=== PATIENT | male | born 1935 ===

== ENCOUNTER 2021-10-11 11:51 | Outpatient (CLI) | payer OTHER | END 2021-10-11 11:52 | disposition home or self-care (01) | LOC: LAB 11:51 | PROVIDERS: ATTEND Radiology Diagnostic Radiology | DX: R31.1 Benign essential microscopic hematuria (principal) ==

== ENCOUNTER → 2021-10-12 | Outpatient (CLI) | payer OTHER | END | disposition home or self-care (01) | LOC: RAD | DX: N40.0 Benign prostatic hyperplasia without lower urinary tract symptoms (principal); C61 Malignant neoplasm of prostate; R31.1 Benign essential microscopic hematuria; M62.00 Separation of muscle (nontraumatic), unspecified site | CPT/HCPCS: 72040; 74178; Q9965 ==

== ENCOUNTER 2024-12-08 09:33 | Inpatient (IN) | payer OTHER ==
[~2024-12-08] VITALS: Ht 152.4 cm; Wt 62.1 kg
[2024-12-08] MEDS ORDERED: 0.9 % SODIUM CHLORIDE 1,000 ML IV ONE (09:45)
[2024-12-08 10:08] LABS: BASO % 0.5 % (0.1-1.2); EOS # 0.03 (0.04-0.54); EOS % 0.8 % (0.7-7.0); LYMPH # 0.91 (1.18-3.74); LYMPH % 23.2 % (19.3-53.1); MEAN PLATELET VOLUME 10.20 fl (9.4-12.4); MONO # 0.27 (0.24-0.82); MONO % 6.9 % (4.7-12.5); NEUT # 2.66 (1.56-6.13); NEUT % 67.8 % (34.0-71.1); RED CELL DISTRIBUTION WIDTH 13.1 % (11.6-14.4)
--- NOTE | 2024-12-08 10:08 | NUR ---
SE REALIZA LAB Y SE ADMINISTRA TX FABIO ORDEN MEDICA BAJO MEDIDAS ASEPTICAS. SE ORIENTA FAMILIAR DE PTE QUIEN REFIERE ENTENDER Y ACEPTAR. SE REALIZA EKG Y SE PRESENTA A DR. FRANCO QUIEN ORDENA QUE SE UBIQUE PTE EN UNIDAD DE CHEST PAIN.
[2024-12-08] MEDS ORDERED: LISINOPRIL40 MG (10:30)
[2024-12-08] MEDS ORDERED: CARDURA XL4 MG (10:30)
[2024-12-08 10:33] LABS: INR 1.13
[2024-12-08 11:15] LABS: ALT/SGPT 16.0 U/L (12-78); AST/SGOT 16.0 U/L (15-37); BILIRUBIN TOTAL 0.7 mg/dL (0.3-1.2); BUN CREA RATIO 24.0 (7.0-25.0); CREATININE SERUM 0.89 mg/dL (0.70-1.30); GFR 80.48; GLOBULINA 2.8 G/DL (2.4-3.5); GLUCOSE FASTING 100.0 mg/dL (65-100); OSMOLALITY SERUM 295.0 MOSM/KG (275-295); PHOSPHOKINASE CREATININE 77.0 U/L (39-308); TSH 3.32 uIU/mL (0.358-3.74)
[2024-12-08] MEDS ORDERED: ATORVASTATIN CALCIUM 40 MG TABLET PO ONE (14:30)
[2024-12-08] MEDS ORDERED: CLOPIDOGREL BISULFATE 75 MG TABLET PO ONE ×2 (14:30→15:04)
[2024-12-08] MEDS ORDERED: ASPIRIN 325 MG TABLET PO ONE (14:30)
[2024-12-08] MEDS ORDERED: ASPIRIN 325 MG TABLET.EC PO ONE (15:48)
[2024-12-08] MEDS ORDERED: ASPIRIN 325 MG TABLET.EC PO STA (16:06)
[2024-12-08 16:17] LABS: URINE APPEARANCE Clear; URINE BILIRRUBIN Negative (NEGATIVE); URINE BLOOD Moderate; URINE COLOR Yellow; URINE KETONE Negative (NEGATIVE); URINE LEUKOCYTE Negative; URINE NITRATE Negative; URINE PROTEIN Trace (NEGATIVE); URINE UROBILINOGEN 1.0 E.U./dl
[2024-12-08 16:21] LABS: URINE RBC 142.8 uL (0.0-20.8); URINE WBC 4.3 uL (0.0-23.2)
[2024-12-08 16:23] LABS: URINE BACTERIA 3.6 uL (0.0-1933); URINE CAST 0.29 uL (0.0-1.40); URINE EPITHELIAL CELLS 1.0 uL (0.0-38.8); URINE GLUCOSE 100 MG/DL (NEGATIVE)
[2024-12-08] MEDS ORDERED: CLOPIDOGREL BISULFATE 75 MG TABLET PO SCH (16:26)
[2024-12-08] MEDS ORDERED: ASPIRIN 81 MG TABLET.EC PO SCH (16:26)
[2024-12-08] MEDS ORDERED: ENOXAPARIN SODIUM 40 MG/0.4 ML SYRINGE SUBCUTANEO SCH (16:27)
[2024-12-08] MEDS ORDERED: ATORVASTATIN CALCIUM 40 MG TABLET PO SCH (16:27)
[2024-12-08] MEDS ORDERED: 0.9 % SODIUM CHLORIDE 1,000 ML IV SCH (16:30)
[2024-12-08] MEDS ORDERED: ACETAMINOPHEN 325 MG TABLET PO PRN (16:30)
[2024-12-08] MEDS ORDERED: LISINOPRIL 10 MG TABLET PO SCH (16:31)
[2024-12-08] MEDS ORDERED: AMLODIPINE BESYLATE 5 MG TABLET PO SCH (16:31)
[2024-12-08] MEDS ORDERED: FAMOTIDINE/PF 20 MG in 0.9 % SODIUM CHLORIDE 8 ML IV PUSH SCH (16:35)
[2024-12-08] MEDS ORDERED: ENOXAPARIN SODIUM 40 MG/0.4 ML SYRINGE SUBCUTANEO ONE (17:30)
[2024-12-08] MEDS ORDERED: FAMOTIDINE/PF 20 MG/2 ML VIAL ONE (17:31)
[2024-12-08 18:13] VITALS: BP 190/80; O2SAT 97
[2024-12-08 18:14] LABS: T4 FREE 1.24 NG/ML (0.76-1.46); TSH 2.41 uIU/mL (0.358-3.74)
[2024-12-08 18:15] LABS: CKMB 5.1 NG/ML (0.5-3.6)
[2024-12-08 19:29] VITALS: BP 186/82; O2SAT 97
[2024-12-08] MEDS ORDERED: LABETALOL HCL 100 MG/20 ML ML IV PUSH PRN (19:30)
[2024-12-08] MEDS ORDERED: MORPHINE SULFATE 2 MG/ML SYRINGE IV PRN (19:30)
[2024-12-08 22:45] VITALS: BP 131/74; O2SAT 96
[2024-12-09] MEDS ORDERED: DEXAMETHASONE SODIUM PHOSPHATE 4 MG/ML VIAL IV SCH
[2024-12-09 02:04] VITALS: BP 141/76; O2SAT 97
[2024-12-09 06:33] LABS: BASO % 0.2 % (0.1-1.2); EOS # 0.00 (0.04-0.54); EOS % 0.0 % (0.7-7.0); LYMPH # 0.60 (1.18-3.74); LYMPH % 9.4 % (19.3-53.1); MEAN PLATELET VOLUME 10.60 fl (9.4-12.4); MONO # 0.59 (0.24-0.82); MONO % 9.3 % (4.7-12.5); NEUT # 5.15 (1.56-6.13); NEUT % 80.9 % (34.0-71.1); RED CELL DISTRIBUTION WIDTH 13.0 % (11.6-14.4)
[2024-12-09 16:23] VITALS: BP 118/70; O2SAT 95
[2024-12-09 16:54] VITALS: O2SAT 95
[2024-12-09] MEDS ORDERED: AMINO ACIDS/PROTEIN HYDROLYS 30 ML BLIST.PACK PO SCH (17:00)
[2024-12-09] MEDS ORDERED: DEXAMETHASONE SODIUM PHOSP/PF 10 MG/ML VIAL IV STA (17:41)
[2024-12-09 20:26] VITALS: O2SAT 90
[2024-12-10] VITALS (10 sets, daily range): BP systolic 139–167; BP diastolic 65–89; O2SAT 88–96
[2024-12-10] MEDS ORDERED: DEXAMETHASONE SODIUM PHOSPHATE 4 MG/ML VIAL IV SCH
[2024-12-10] MEDS ORDERED: PANTOPRAZOLE SODIUM 40 MG/VIAL VIAL IV PUSH SCH (10:06)
[2024-12-10] MEDS ORDERED: RINGERS SOLUTION,LACTATED 1,000 ML IV SCH (10:15)
[2024-12-10] MEDS ORDERED: MORPHINE SULFATE 2 MG/ML SYRINGE IV SCH (21:33)
[2024-12-10] MEDS ORDERED: METHYLPREDNISOLONE SOD SUCC 500 MG VIAL IV STA (21:38)
[2024-12-10] MEDS ORDERED: MANNITOL 0.2 GM/ML (500ML) IV.SOLN IV SCH (21:59)
[2024-12-10] MEDS ORDERED: IPRATROPIUM BROMIDE 0.5 MG/2.5 ML AMPUL.NEB IH SCH (22:03)
[2024-12-10] MEDS ORDERED: DEXTROSE 50 % IN WATER 0.5 G/ML DISP.SYRIN IV PRN (22:15)
[2024-12-10] MEDS ORDERED: INSULIN LISPRO 1,000 UNIT/10 ML UNITS SUBCUTANEO PRN (22:15)
[2024-12-10] MEDS ORDERED: hydrALAZINE HCL 20 MG VIAL IV PRN (22:15)
[2024-12-10] MEDS ORDERED: METHYLPREDNISOLONE SOD SUCC 125 MG VIAL ONE (22:23)
[2024-12-11] VITALS (13 sets, daily range): BP systolic 114–156; BP diastolic 42–75; O2SAT 92–100
[2024-12-11] MEDS ORDERED: ORPHENADRINE CITRATE 30 MG/ML AMPUL ONE (00:55)
[2024-12-11] MEDS ORDERED: CEFTRIAXONE SODIUM 1,000 MG VIAL IV SCH (09:00)
[2024-12-11] MEDS ORDERED: ATORVASTATIN CALCIUM 40 MG TABLET PO SCH (09:00)
[2024-12-11] MEDS ORDERED: RINGERS SOLUTION,LACTATED 1,000 ML IV SCH (10:15)
[2024-12-11] MEDS ORDERED: MANNITOL 0.2 GM/ML (250ML) PIGGYBAG IV SCH (12:00)
[2024-12-11] MEDS ORDERED: ENOXAPARIN SODIUM 60 MG/0.6 ML SYRINGE SUBCUTANEO ONE (17:00)
[2024-12-11] MEDS ORDERED: SODIUM CL 0.9% 100 ML IV.SOLN IV ONE (17:18)
[2024-12-11] MEDS ORDERED: PIPERACILLIN/TAZOBACTAM SODIUM 3.375 GM in 0.9 % SODIUM CHLORIDE 100 ML IV SCH (18:00)
[2024-12-11] MEDS ORDERED: MORPHINE SULFATE 2 MG/ML CARTRIDGE IV PRN (18:59)
[2024-12-11] MEDS ORDERED: POLYETHYLENE GLYCOL 3350 17 GM BLIST.PACK PO SCH (21:00)
[2024-12-11] MEDS ORDERED: KETOROLAC TROMETHAMINE 30 MG VIAL IV PRN (21:00)
[2024-12-11] MEDS ORDERED: NOREPINEPHRINE BITARTRATE 1 MG/ML AMPUL IV ONE (22:31)
[2024-12-11] MEDS ORDERED: NOREPINEPHRINE BITARTRATE 4 MG in DEXTROSE 5 % IN WATER 250 ML IV SCH (22:45)
[2024-12-11] MEDS ORDERED: 0.9 % SODIUM CHLORIDE 1,000 ML IV SCH (23:00)
[2024-12-11] MEDS ORDERED: 0.9 % SODIUM CHLORIDE 500 ML IV ONE (23:00)
[2024-12-12] VITALS (23 sets, daily range): BP systolic 95–141; BP diastolic 21–65; O2SAT 94–100
[2024-12-12] MEDS ORDERED: NOREPINEPHRINE BITARTRATE 1 MG/ML AMPUL IV ONE (06:06)
[2024-12-12 08:32] LABS: BASO % 0.1 % (0.1-1.2); EOS # 0.00 (0.04-0.54); EOS % 0.0 % (0.7-7.0); LYMPH # 0.25 (1.18-3.74); LYMPH % 2.0 % (19.3-53.1); MEAN PLATELET VOLUME 11.70 fl (9.4-12.4); MONO # 0.58 (0.24-0.82); MONO % 4.7 % (4.7-12.5); NEUT # 11.47 (1.56-6.13); NEUT % 92.6 % (34.0-71.1); RED CELL DISTRIBUTION WIDTH 14.2 % (11.6-14.4)
[2024-12-12] MEDS ORDERED: POLYETHYLENE GLYCOL 3350 17 GM BLIST.PACK PO SCH (09:00)
[2024-12-12 09:06] LABS: ALT/SGPT 40.0 U/L (12-78); AST/SGOT 40.0 U/L (15-37); BILIRUBIN TOTAL 1.69 mg/dL (0.3-1.2); BUN CREA RATIO 32.0 (7.0-25.0); CREATININE SERUM 2.19 mg/dL (0.70-1.30); GFR 28.47; GLOBULINA 4.2 G/DL (2.4-3.5)
[2024-12-12 09:12] LABS: GLUCOSE FASTING 213.0 mg/dL (65-100); OSMOLALITY SERUM 312.0 MOSM/KG (275-295)
[2024-12-12] MEDS ORDERED: OXYMETAZOLINE HCL 15 ML BOTTLE NASAL ONE (11:09)
[2024-12-12] MEDS ORDERED: 0.9 % SODIUM CHLORIDE 1,000 ML IV ONE (13:30)
[2024-12-12] MEDS ORDERED: 0.9 % SODIUM CHLORIDE 1,000 ML IV NR (14:30)
[2024-12-12] MEDS ORDERED: NOREPINEPHRINE BITARTRATE 16 MG in DEXTROSE 5 % IN WATER 500 ML IV SCH (16:30)
[2024-12-12] MEDS ORDERED: CHLORHEXIDINE GLUCONATE 15ML BRUSH KIT MM SCH (17:00)
[2024-12-12] MEDS ORDERED: ENOXAPARIN SODIUM 60 MG/0.6 ML SYRINGE SUBCUTANEO ONE (17:00)
[2024-12-12] MEDS ORDERED: POLYVINYL ALCOHOL 15 ML DROPS OP SCH (17:00)
[2024-12-12] MEDS ORDERED: MEROPENEM 500 MG/VIAL VIAL IV SCH (17:00)
[2024-12-12] MEDS ORDERED: AMIODARONE HCL 50 MG/ML AMPUL IV ONE (17:31)
[2024-12-12] MEDS ORDERED: AMIODARONE HCL 50 MG/ML AMPUL IV STA (17:38)
[2024-12-12] MEDS ORDERED: AMIODARONE HCL 518 ML IV SCH (17:45)
[2024-12-12 17:57] LABS: URINE APPEARANCE Turbid; URINE BILIRRUBIN Negative (NEGATIVE); URINE BLOOD Small; URINE COLOR Red; URINE GLUCOSE Negative (NEGATIVE); URINE KETONE Negative (NEGATIVE); URINE LEUKOCYTE Moderate; URINE NITRATE Positive; URINE PROTEIN 30 (NEGATIVE); URINE UROBILINOGEN 0.2 E.U./dl
[2024-12-12 18:00] LABS: URINE BACTERIA 65.9 uL (0.0-1933); URINE EPITHELIAL CELLS 53.9 uL (0.0-38.8); URINE WBC 107.0 uL (0.0-23.2)
[2024-12-12 18:46] LABS: URINE CAST 0.00 uL (0.0-1.40); URINE RBC > 10558.9 uL (0.0-20.8)
[2024-12-12 18:47] LABS: URINE CRYSTALS MANY /HPF
[2024-12-12] MEDS ORDERED: LINEZOLID IN DEXTROSE 5% 300 ML IV SCH (21:00)
[2024-12-12] MEDS ORDERED: NOREPINEPHRINE BITARTRATE 8 MG in DEXTROSE 5 % IN WATER 250 ML IV SCH (22:45)
[2024-12-13] VITALS (24 sets, daily range): BP systolic 101–188; BP diastolic 27–85; O2SAT 96–100
[2024-12-13 07:48] LABS: BASO % 0.2 % (0.1-1.2); EOS # 0.00 (0.04-0.54); EOS % 0.0 % (0.7-7.0); LYMPH # 0.11 (1.18-3.74); LYMPH % 0.6 % (19.3-53.1); MEAN PLATELET VOLUME 11.60 fl (9.4-12.4); MONO # 1.23 (0.24-0.82); MONO % 6.2 % (4.7-12.5); NEUT # 18.36 (1.56-6.13); NEUT % 92.3 % (34.0-71.1); RED CELL DISTRIBUTION WIDTH 13.9 % (11.6-14.4)
[2024-12-13 08:30] LABS: ALT/SGPT 42.0 U/L (12-78); AST/SGOT 88.0 U/L (15-37); BILIRUBIN TOTAL 2.11 mg/dL (0.3-1.2); BUN CREA RATIO 23.0 (7.0-25.0); CREATININE SERUM 3.49 mg/dL (0.70-1.30); GFR 16.63; GLOBULINA 3.5 G/DL (2.4-3.5); GLUCOSE FASTING 167.0 mg/dL (65-100); OSMOLALITY SERUM 311.0 MOSM/KG (275-295)
[2024-12-13 08:34] LABS: PHOSPHOKINASE CREATININE 1503.0 U/L (39-308)
[2024-12-13] MEDS ORDERED: PANTOPRAZOLE SODIUM 40 MG/VIAL VIAL IV PUSH SCH (09:00)
[2024-12-13] MEDS ORDERED: AMINO ACIDS/PROTEIN HYDROLYS 30 ML BLIST.PACK PO SCH (09:00)
[2024-12-13] MEDS ORDERED: PROPOFOL 100 ML IV SCH (10:30)
[2024-12-13] MEDS ORDERED: ENOXAPARIN SODIUM 60 MG/0.6 ML SYRINGE SUBCUTANEO ONE (17:00)
[2024-12-13] MEDS ORDERED: METHYLPREDNISOLONE SOD SUCC 125 MG VIAL IV SCH (18:00)
[2024-12-13] MEDS ORDERED: POTASSIUM CHLORIDE IN WATER 100 ML IV ONE (21:15)
[2024-12-13] MEDS ORDERED: 0.9 % SODIUM CHLORIDE 1,000 ML IV STA ×2 (22:23→23:02)
[2024-12-13] MEDS ORDERED: WATER FOR INJECTION,STERILE 20 ML VIAL IJ ONE (23:31)
[2024-12-14] VITALS (18 sets, daily range): BP systolic 126–155; BP diastolic 29–46; O2SAT 94–100
[2024-12-14] MEDS ORDERED: METHYLPREDNISOLONE SOD SUCC 125 MG VIAL IV SCH ×2 (01:00→21:00)
[2024-12-14 08:50] LABS: CREATININE SERUM 3.83 mg/dL (0.70-1.30); GFR 14.94; GLUCOSE FASTING 145.0 mg/dL (65-100)
[2024-12-14 08:54] LABS: BUN CREA RATIO 21.0 (7.0-25.0); OSMOLALITY SERUM 307.0 MOSM/KG (275-295)
[2024-12-14] MEDS ORDERED: MEROPENEM 500 MG/VIAL VIAL IV SCH (09:00)
[2024-12-14] MEDS ORDERED: CALCIUM GLUCONATE 100 MG/ML VIAL IV STA (09:40)
[2024-12-14] MEDS ORDERED: METHYLPREDNISOLONE SOD SUCC 125 MG VIAL IV NR (14:00)
[2024-12-14] MEDS ORDERED: CALCIUM GLUCONATE 100 MG/ML VIAL IV NR (16:00)
[2024-12-14] MEDS ORDERED: ENOXAPARIN SODIUM 60 MG/0.6 ML SYRINGE SUBCUTANEO ONE (17:00)
[2024-12-14] MEDS ORDERED: ENOXAPARIN SODIUM 40 MG/0.4 ML SYRINGE SUBCUTANEO SCH (20:36)
[2024-12-15] VITALS: BP 118/38; O2SAT 95
[2024-12-15] MEDS ORDERED: VASOPRESSIN 40 UNITS in 0.9 % SODIUM CHLORIDE 100 ML IV SCH (00:15)
[2024-12-15 01:00] VITALS: BP 127/36; O2SAT 97
[2024-12-15] MEDS ORDERED: ENOXAPARIN SODIUM 60 MG/0.6 ML SYRINGE SUBCUTANEO ONE (07:15)
== END 2024-12-15 02:06 | disposition expired | DRG 64 ==
LOC: ER 09:33 → SURH 17:19 → ICU 12-11 19:27
PROVIDERS: General Practice; Internal Medicine; Internal Medicine Infectious Disease; ADMIT Internal Medicine; ATTEND Internal Medicine
PROC: BW28ZZZ Computerized Tomography (CT Scan) of Head (ICD-10-PCS; 2024-12-08)
PROC: BR20ZZZ Computerized Tomography (CT Scan) of Cervical Spine (ICD-10-PCS; 2024-12-08)
PROC: BW24YZZ Computerized Tomography (CT Scan) of Chest and Abdomen using Other Contrast (ICD-10-PCS; 2024-12-08)
PROC: BW21YZZ Computerized Tomography (CT Scan) of Abdomen and Pelvis using Other Contrast (ICD-10-PCS; 2024-12-08)
PROC: B030ZZZ Magnetic Resonance Imaging (MRI) of Brain (ICD-10-PCS; 2024-12-08)
PROC: B345ZZZ Ultrasonography of Bilateral Common Carotid Arteries (ICD-10-PCS; 2024-12-08)
PROC: B03BZZZ Magnetic Resonance Imaging (MRI) of Spinal Cord (ICD-10-PCS; 2024-12-09)
PROC: B03BZZZ Magnetic Resonance Imaging (MRI) of Spinal Cord (ICD-10-PCS; 2024-12-09)
PROC: 4A12X4Z Monitoring of Cardiac Electrical Activity, External Approach (ICD-10-PCS; 2024-12-09)
PROC: B24BYZZ Ultrasonography of Heart with Aorta using Other Contrast (ICD-10-PCS; 2024-12-10)
PROC: 0BH18EZ Insertion of Endotracheal Airway into Trachea, Via Natural or Artificial Opening Endoscopic (ICD-10-PCS; principal; 2024-12-11)
PROC: 02HV33Z Insertion of Infusion Device into Superior Vena Cava, Percutaneous Approach (ICD-10-PCS; 2024-12-12)
PROC: B24BYZZ Ultrasonography of Heart with Aorta using Other Contrast (ICD-10-PCS; 2024-12-14)
DX: I63.9 Cerebral infarction, unspecified (principal); A41.9 Sepsis, unspecified organism; I26.99 Other pulmonary embolism without acute cor pulmonale; J96.90 Respiratory failure, unspecified, unspecified whether with hypoxia or hypercapnia; J69.0 Pneumonitis due to inhalation of food and vomit; G95.9 Disease of spinal cord, unspecified; J81.1 Chronic pulmonary edema; E87.20 Acidosis, unspecified; R57.9 Shock, unspecified; J98.11 Atelectasis; R65.10 Systemic inflammatory response syndrome (SIRS) of non-infectious origin without acute organ dysfunction; I10 Essential (primary) hypertension; M48.00 Spinal stenosis, site unspecified; T14.8XXA Other injury of unspecified body region, initial encounter; I48.91 Unspecified atrial fibrillation; I35.0 Nonrheumatic aortic (valve) stenosis; I46.9 Cardiac arrest, cause unspecified; M47.812 Spondylosis without myelopathy or radiculopathy, cervical region
CPT/HCPCS: 70551; 72141; 72146; 72148